=== PATIENT | male | born 1980 | race Two or more races ===

== ENCOUNTER 2021-04-24 20:45 | Emergency (ER) | payer SELFPAY ==
[~2021-04-24] VITALS: Ht 167.6 cm; Wt 81.6 kg
--- NOTE | 2021-04-24 20:47 | NUR ---
PATIENT CAME TO THE ER BED 14 [facility] FROM HOME DEPOT FOUND WITH FRIENDS DRINKING TEQUILA. PATIENT IS ALERT AND ORIENTED x0. PATIENT IS RESPONSIVE TO PAIN. PATIENT IS BREATHING EVENLY AND UNLABORED ON ROOM AIR. CONNECTED TO THE BUSINESS MACHINE OPERATOR.
--- NOTE | 2021-04-24 20:59 | NUR ---
BLOOD COLLECTED AND SENT TO THE LAB.
[2021-04-24 21:00] LABS: BASOPHILS # (AUTO) 0.1 K/uL (0.0-0.2); BASOPHILS % (AUTO) 0.8 % (0.0-2.0); EOSINOPHILS % (AUTO) 1.2 % (0.0-6.0); HEMATOCRIT 43 % (39-51); HEMOGLOBIN 14.5 g/dL (13.5-17.5); LYMPHOCYTES # (AUTO) 1.8 K/uL (0.8-4.8); LYMPHOCYTES % (AUTO) 22.2 % (20.0-44.0); MEAN CORPUSCULAR HGB CONC 33 g/dl (31.0-36.0); MEAN CORPUSCULAR VOLUME 85 fL (80-96); MONOCYTES # (AUTO) 0.4 K/uL (0.1-1.30); MONOCYTES % (AUTO) 4.4 % (2.0-12.0); NEUTROPHILS # (AUTO) 5.8 K/uL (1.8-8.9); NEUTROPHILS % (AUTO) 71.4 % (43.0-81.0); PLATELET COUNT (AUTO) 341 K/uL (150-450); RED BLOOD CELL COUNT(AUTO) 5.11 MIL/uL (4.5-6.0); WHITE BLOOD COUNT (AUTO) 8.1 K/uL (4.3-11.0)
[2021-04-24] MEDS ORDERED: IV NS 0.9% 1,000 ML BAG IV ONE (21:00)
[2021-04-24 21:07] LABS: CALCIUM, SERUM 8.3 mg/dL (8.5-10.1); CREATININE 1.2 mg/dL (0.6-1.3)
[2021-04-24 21:15] LABS: ALBUMIN 3.7 g/dL (3.4-5.0); BILIRUBIN,DIRECT 0.1 mg/dL (0.0-0.2); BILIRUBIN,TOTAL 0.1 mg/dL (0.2-1.0); TOTAL PROTEIN, SERUM 8.4 g/dL (6.4-8.2)
[2021-04-25 07:13] VITALS: BP 125/75
--- NOTE | 2021-04-25 07:13 | NUR ---
Patient discharged to home in stable condition. Written and verbal after care instructions given. Patient verbalizes understanding of instruction.
== END 2021-04-25 07:14 | disposition home or self-care (01) ==
LOC: ER 20:49 → EDBD 20:49 → ER 04-25 07:14
DX: F10.129 Alcohol abuse with intoxication, unspecified (principal); Y90.8 Blood alcohol level of 240 mg/100 ml or more
CPT/HCPCS: 36415; 80048; 80076; 80320; 85025; 96360; 99283; J7030; G0480